=== PATIENT | female | born 1980 | race Caucasian/White ===

== ENCOUNTER 2018-07-09 09:54 | Emergency (ER) | payer SELFPAY ==
[~2018-07-09] VITALS: Ht 165.1 cm; Wt 80.7 kg
[2018-07-09 10:25] VITALS: BP 132/68
--- NOTE | 2018-07-09 10:54 | PHYS DOC ---
Past Medical History Past Medical History: No Pertinent History Past Surgical History: Appendectomy, Cholecystectomy, Hysterectomy, Tonsillectomy Alcohol Use: None Drug Use: None Adult General Chief Complaint Chief Complaint: SHOULDER INJURY HPI HPI Patient is a 38 year old who presents to the emergency room with complaints of right lateral and posterior shoulder pain after feeling something pop while throwing a approximately 4 days ago. She currently reports that the pain is 9 out of 10 on the pain scale she denies any alleviating factors, states that the pain increases with palpation or movement. She denies any numbness, tingling, or weakness of the affected extremity. Review of Systems Review of Systems Constitutional: Denies fever or chills [] Musculoskeletal: See history of present illness Integument: Denies rash or skin lesions [] Neurologic: Denies focal weakness or sensory changes [] Current Medications Current Medications Current Medications Medications (Trade) Dose Ordered Sig/Randi Start Time Stop Time Status Last Admin Dose Admin Acetaminophen/ Hydrocodone Bitart (Lortab 5/325) 1 tab 1X ONCE 07/09/18 11:00 07/09/18 11:05 DC 07/09/18 11:18 1 TAB Naproxen (Naprosyn) 500 mg 1X STAT 07/09/18 10:50 07/09/18 11:05 DC 07/09/18 11:19 500 MG Allergies Allergies Allergies Coded Allergies Type Severity Reaction Last Updated Verified Penicillins Allergy Intermediate 07/09/18 Yes codeine Allergy Intermediate 07/09/18 Yes ketorolac Allergy Intermediate 07/09/18 Yes Physical Exam Physical Exam Constitutional: Well developed, well nourished, no acute distress, non-toxic appearance. [] HENT: Normocephalic, atraumatic, bilateral external ears normal, nose normal. [] Eyes: conjunctiva normal, no discharge. [] Neck: Normal range of motion, no stridor. [] Cardiovascular:Heart rate regular rhythm, no murmur [] Lungs & Thorax: Bilateral breath sounds clear to auscultation [] Skin: Warm, dry, no erythema, no rash. [] Extremities: No cyanosis, no clubbing, no edema; R shoulder: Limited range of motion to 90 laterally and inferiorly, posterior shoulder tenderness to palpation, anterior lateral shoulder tenderness to palpation, equal ice guard tester noted bilaterally, 2+ radial pulse right upper extremity Neurologic: Alert and oriented X 3, normal motor function, normal sensory function, no focal deficits noted. [] Psychologic: Affect normal, judgement normal, mood normal. [] Current Patient Data Vital Signs Vital Signs Date Time Temp Pulse Resp B/P (MAP) Pulse Ox O2 Delivery O2 Flow Rate FiO2 07/09/18 11:18 16 99 Room Air 07/09/18 10:25 98.6 84 132/68 (89) 98.6 EKG EKG [] Radiology/Procedures Radiology/Procedures PROCEDURE: SHOULDER 2+V RIGHT EXAM: Right shoulder, 3 views. HISTORY: Pain. COMPARISON: None. FINDINGS: 3 views of the right shoulder obtained. There is no fracture, dislocation or subluxation. IMPRESSION: No acute osseous finding. [] Course & Med Decision Making Course & Med Decision Making Pertinent Labs and Imaging studies reviewed. (See chart for details) dx: R shoulder strain, R shoulder pain xray was negative for any acute fx or dislocation. pt was given a hydrocodone and naproxen in the ER. Prescription written for naproxen. Activity as tolerated. Apply ice or heat as needed for comfort. Follow up with Dr. Archuleta if symptoms persist, return to the ER if symptoms worsen. Patient verbalized an understanding of home care, medications, follow-up, and return to ED instructions and was in agreement with the plan of care. [] Dragon Disclaimer Dragon Disclaimer This electronic medical record was generated, in whole or in part, using a voice recognition dictation system. Departure Departure Impression: Primary Impression: Right shoulder pain Additional Impression: Right shoulder strain Disposition: 01 HOME, SELF-CARE Condition: STABLE Referrals: NAILA ARCHULETA MD Patient Instructions: Shoulder Pain, [id number], Shoulder Sprain Additional Instructions: Fill the prescription and use as directed. Activity as tolerated. Apply ice or heat as needed for comfort. Follow up with Dr. Archuleta if symptoms persist, return to the ER if symptoms worsen. Scripts Naproxen (NAPROXEN) 500 Mg Tablet 1 TAB PO BID PRN for PAIN for 10 Days, #20 TAB 0 Refills Prov: KELSEY WATSON Jessica MCFARLAND 07/09/18 Problem Qualifiers Primary Impression: Right shoulder pain Chronicity: acute Qualified Codes: M25.511 - Pain in right shoulder Additional Impression: Right shoulder strain Encounter type: initial encounter Qualified Codes: S46.911A - Strain of unspecified muscle, fascia and tendon at shoulder and upper arm level, right arm , initial encounter KELSEY WATSON APRN Jul 09, 2018 10:54
[2018-07-09] MEDS: HYDROcodone/APAP 5/325MG 1 TAB TABLET PO ONE (11:18)
[2018-07-09] MEDS: NAPROXEN 500 MG TABLET PO STA (11:19)
--- NOTE | 2018-07-09 11:21 | RAD ---
EXAM: Right shoulder, 3 views. HISTORY: Pain. COMPARISON: None. FINDINGS: 3 views of the right shoulder obtained. There is no fracture, dislocation or subluxation. IMPRESSION: No acute osseous finding. Electronically signed by: Kinza Sifuentes MD (07/09/2018 11:18 AM) [id number]
[2018-07-09] MEDS ORDERED: NAPR-514 PO (11:42)
== END 2018-07-09 11:49 | disposition home or self-care (01) ==
LOC: ER 09:54
DX: S46.811A Strain of other muscles, fascia and tendons at shoulder and upper arm level, right arm, initial encounter (principal); Z90.89 Acquired absence of other organs; Z90.49 Acquired absence of other specified parts of digestive tract; Z90.710 Acquired absence of both cervix and uterus; Z88.0 Allergy status to penicillin; Z88.5 Allergy status to narcotic agent; Z88.8 Allergy status to other drugs, medicaments and biological substances; X50.9XXA Other and unspecified overexertion or strenuous movements or postures, initial encounter; Y93.89 Activity, other specified; Y92.89 Other specified places as the place of occurrence of the external cause; Y99.8 Other external cause status
CPT/HCPCS: 73030; 99283

== ENCOUNTER 2018-08-19 22:24 | Emergency (ER) | payer SELFPAY ==
[~2018-08-19] VITALS: Ht 162.6 cm; Wt 80.7 kg
[2018-08-19 22:24] VITALS: BP 139/93
[~2018-08-19 22:24] MED LIST: NAPR-514 PO
[2018-08-19] MEDS ORDERED: HYDROcodone/APAP 10/325 1 TAB TABLET PO ONE (23:30)
[2018-08-19] MEDS ORDERED: HYDR-3164 PO (23:41)
--- NOTE | 2018-08-19 23:41 | PHYS DOC ---
Past Medical History Past Medical History: No Pertinent History (ZULEYKA STEWART) Past Surgical History: Appendectomy, Cholecystectomy, Hysterectomy, Tonsillectomy Additional Past Surgical Histo: ADNOIDS, HERNIA, D&C X3 (ZULEYKA STEWART) Alcohol Use: None Drug Use: None (ZULEYKA STEWART) Adult General Chief Complaint Chief Complaint: SHOULDER INJURY HPI HPI Patient is a 38 year old F who presents with R shoulder pain. She states that on Friday her horse pulled her hard while she was holding his harness and she has had pain since that time. Pt was waiting for her xray but then stated she doesn't want to wait to get the xray. I explained that I would not be able to rule out fracture, dislocation or injury without imaging. A pain pill was ordered for pt but nurse asked pt to have her ride come in before we would give her a narcotic pain pill. She had told me she had a ride. Pt left to get her ride and then came back in and told the front end web designer that she wasn't sure when he would be back. She was told she would not be getting any medicine without a ride and she then left. She then called up to the ER to see if she could come back in the morning to mushroom picker her prescription. After she left, Dr. Davis and I looked her up in the [facility] system and she has filled multiple prescriptions including 4 prior Rx for tramadol and hydrocodone this month alone. I spoke with pt on phone and told her we would not be filling narcotics for her. She said "thankyou" and hung up. (ZULEYKA STEWART) Review of Systems Review of Systems Constitutional: Denies fever or chills Respiratory: Denies cough or shortness of breath Cardiovascular: Denies chest pain GI: Denies abdominal pain, nausea, vomiting, bloody stools or diarrhea Musculoskeletal: Denies back pain or neck pain. Reports R shoulder pain. Integument: Denies rash or skin lesions Neurologic: Denies headache, focal weakness or sensory changes All other systems were reviewed and found to be within normal limits, except as documented in this note. (ZULEYKA STEWART) Current Medications Current Medications Current Medications Medications (Trade) Dose Ordered Sig/Randi Start Time Stop Time Status Last Admin Dose Admin Acetaminophen/ Hydrocodone Bitart (Lortab 10/325) 1 tab 1X ONCE 08/19/18 23:30 08/19/18 23:31 DC 08/19/18 23:22 1 TAB (RANI DAVIS DO) Allergies Allergies Allergies Coded Allergies Type Severity Reaction Last Updated Verified Penicillins Allergy Intermediate 07/09/18 Yes codeine Allergy Intermediate 07/09/18 Yes ketorolac Allergy Intermediate 07/09/18 Yes (RANI DAVIS DO) Physical Exam Physical Exam Constitutional: Well developed, well nourished, no acute distress, non-toxic appearance. Neck: Normal range of motion, no tenderness, supple, no stridor. Cardiovascular:Heart rate regular rhythm, no murmur Lungs & Thorax: Bilateral breath sounds clear to auscultation Abdomen: Bowel sounds normal, soft, no tenderness, no masses, no pulsatile masses. Skin: Warm, dry, no erythema, no rash. Back: No tenderness, no CVA tenderness. Extremities: Pt holding R arm flexed at elbow and held against her side. She is able to move arm out from body but has pain with abduction of shoulder at about 30 degrees. She is tender over posterior shoulder and upper humerus with palpation. Neurologic: Alert and oriented X 3, normal motor function, normal sensory function, no focal deficits noted. Psychologic: Affect normal, judgement normal, mood normal. (ZULEYKA STEWART) Current Patient Data Vital Signs Vital Signs Date Time Temp Pulse Resp B/P (MAP) Pulse Ox O2 Delivery O2 Flow Rate FiO2 08/19/18 22:24 98.0 80 16 139/93 (108) 98 Room Air 98.0 (RANI DAVIS DO) EKG EKG [] (ZULEYKA STEWART) Radiology/Procedures Radiology/Procedures declined imaging (ZULEYKA STEWART) Course & Med Decision Making Course & Med Decision Making Pertinent Labs and Imaging studies reviewed. (See chart for details) Pt was familiar to me when I examined her and in looking at [place] has been to multiple ER's across the area including [place], [facility], [place], [place] and others. I have great concern about her drug seeking behavior and the events that took place here tonight. (ZULEYKA STEWART) Dragon Disclaimer Dragon Disclaimer This electronic medical record was generated, in whole or in part, using a voice recognition dictation system. (ZULEYKA STEWART) Departure Departure Impression: Primary Impression: Right shoulder strain Disposition: HOME, SELF-CARE Condition: STABLE Referrals: NO PCP (PCP) NAILA ALVAREZ MD Patient Instructions: Shoulder Sprain Additional Instructions: Ice, rest, follow up with Kathe Laureano Hydrocodone/Apap 5-325 (NORCO 5-325 TABLET) 1 Each Tablet 1-2 TAB PO Q4-6HRS, #12 TAB Prov: ZULEYKA STEWART 08/19/18 Attending Signature Attending Signature I have reviewed the PA/RETAIL BUSINESS MANAGER's note and plan of care. I was available for consultation as needed during the patient's visit in the emergency department. I agree with the clinical impression, plan, and disposition. (RANI DAVIS DO) ZULEYKA STEWART Aug 19, 2018 23:41 RANI DAVIS DO Aug 23, 2018 15:26
== END 2018-08-19 23:44 | disposition home or self-care (01) ==
LOC: ER 22:24
DX: S46.811A Strain of other muscles, fascia and tendons at shoulder and upper arm level, right arm, initial encounter (principal); Z90.89 Acquired absence of other organs; Z90.49 Acquired absence of other specified parts of digestive tract; Z90.710 Acquired absence of both cervix and uterus; Z88.5 Allergy status to narcotic agent; Z88.0 Allergy status to penicillin; Z88.8 Allergy status to other drugs, medicaments and biological substances; X50.9XXA Other and unspecified overexertion or strenuous movements or postures, initial encounter; Y93.89 Activity, other specified; Y92.89 Other specified places as the place of occurrence of the external cause; Y99.8 Other external cause status
CPT/HCPCS: 99283